=== PATIENT | male | born 1990 | race Caucasian/White ===

== ENCOUNTER 2019-02-28 22:02 | Emergency (ER) | payer OTHER ==
[2019-02-28 22:25] VITALS: BP 136/93
[2019-03-01] MEDS ORDERED: PREDNISONE 20 MG TABLET PO ONE (00:37)
--- NOTE | 2019-03-01 00:40 | ER Document Report ---
ED General - General Chief Complaint: Rash Stated Complaint: POISON SUMAC Time Seen by Provider: 03/01/19 00:35 Notes: Patient is a pleasant 28-year-old male presents with complaint of exposure to poison sumac causing a rash. He says that he moved into new house and saw this poison sumac around the floor beds. He says he has young kids and did not want them to be exposed to and therefore he pulled out himself and since then has developed contact dermatitis from this. He has on his extremities as well as on his torso. He says is been taking Benadryl and using calamine lotion but it has not helped. He has no other complaints at this time. No fevers. No abnormal swelling. TRAVEL OUTSIDE OF THE [place] IN LAST 30 DAYS: No - Related Data Allergies/Adverse Reactions: Penicillins Allergy (Verified 03/24/14 21:21) Past Medical History - Social History Smoking Status: Never Smoker Frequency of alcohol use: None Drug Abuse: None Family History: Reviewed & Not Pertinent Review of Systems - Review of Systems Notes: My Normal Review Basic REVIEW OF SYSTEMS: CONSTITUTIONAL : Denies fever, chills, or sweats. Denies recent illness. EENT: Denies eye, ear, throat, or mouth pain or symptoms. Denies nasal or sinus congestion. RESPIRATORY: Denies cough, cold, or chest congestion. Denies shortness of breath, difficulty breathing, or wheezing. SKIN: Contact dermatitis type of rash. ALL OTHER SYSTEMS REVIEWED AND NEGATIVE. Physical Exam - Vital signs Vitals: Temp Pulse Resp BP Pulse Ox 98.0 F 56 L 18 136/93 H 97 02/28/19 22:23 02/28/19 22:23 02/28/19 22:23 02/28/19 22:23 02/28/19 22:23 - Notes Notes: General Appearance: Well nourished, alert, cooperative, no acute distress, no obvious discomfort. Appearing. Vitals: reviewed, See vital signs table. Head: no swelling or tenderness to the head Eyes: PERRL, EOMI, Conjuctiva clear Mouth: No decreasd moisture Throat: No tonsillar inflammation, No airway obstruction, No lymphadenopathy Lungs: No wheezing, No rales, No rhonci, No accessory muscle use, good air exchange bilaterally. Skin: Edematous pruritic macular papular rash over the upper extremities and torso. Rash consistent with contact dermatitis. Neuro: speech clear, oriented x 3, normal affect, responds appropriately to questions. - General General appearance: Appears well, Alert Course - Re-evaluation Re-evalutation: 03/01/19 06:49 Patient has rash consistent with contact dermatitis from exposure to poison [place]on or poison sumac. Patient will be placed on prednisone tapering over the course of the next week. I encouraged him return to ER if he has any difficulty breathing or swallowing, fevers, signs of infection so she with the rash, or if he feels unwell. Current the rash does not have any evidence of secondary infection on exam. Dictation of this chart was performed using voice recognition software; therefore, there may be some unintended grammatical errors. - Vital Signs Vital signs: Temp Pulse Resp BP Pulse Ox 98.0 F 56 L 18 136/93 H 97 02/28/19 22:23 02/28/19 22:23 02/28/19 22:23 02/28/19 22:23 02/28/19 22:23 Discharge - Discharge Clinical Impression: Allergic dermatitis due to poison sumac Condition: Good Disposition: HOME, SELF-CARE Additional Instructions: Please take the steroids as prescribed. Please take Benadryl 25 mg every 6 hours for itching. Please return to ER if you have worsening spreading redness, fevers, or feel unwell. Prescriptions: RX: Prednisone [Deltasone 10 mg Tablet] 10 mg PO ASDIR PRN #36 tablet PRN Reason:
== END 2019-03-01 01:11 | disposition home or self-care (01) ==
LOC: ER 22:02
DX: L23.7 Allergic contact dermatitis due to plants, except food (principal); Z88.0 Allergy status to penicillin
CPT/HCPCS: 99282; J7512